=== PATIENT | female | born 1965 | race Caucasian/White ===

== ENCOUNTER 2017-11-11 10:34 | Emergency (ER) ==
[2017-11-11 10:47] VITALS: BP 156/93; TEMP 99; BMI 29.2
--- NOTE | 2017-11-11 11:01 | ED.PDOC ---
General ED Provider: Dr. THAI REIS Chief Complaint: Foot Pain/Injury Stated Complaint: Fell yesterday - heard a pop - now painful, unable to bear weight; swollen and bruised. Time Seen by Physician: 10:50 Mode of Arrival: Wheelchair Information Source: Patient Primary Care Provider: SANTANA ARRIAZA Nursing and Triage Documentation Reviewed and Agree: Yes Reviewed sepsis parameters & appropriate labs ordered?: Yes System Inflammatory Response Syndrome: Not Applicable Sepsis Protocol: For patient's 13 years and over: Temp is 96.8 and below OR 101 and greater Pulse >90 BPM Resp >20/minute Acutely Altered Mental Status Are patient's symptoms suggestive of a new infection, such as: -Pneumonia -Skin, Soft Tissue -Endocarditis -UTI -Bone, Joint Infection -Implantable Device -Acute Abdominal Infection -Wound Infection -Meningitis -Blood Stream Catheter Infection -Unknown Review of Systems - Review Of Systems Constitutional: Reports: No symptoms All Other Systems: Reviewed and Negative Past Medical History - Past Medical History Previously Healthy: Yes Endocrine: Reports: Dyslipidemia Cardiovascular: Reports: None Respiratory: Reports: None Hematological: Reports: None Gastrointestinal: Reports: GERD Genitourinary: Reports: None Neuro/Psych: Reports: Anxiety Musculoskeletal: Reports: Arthritis, 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) Cancer: Reports: None Last Menstrual Period: hysterectomy - Surgical History General Surgical History: Reports: Hysterectomy - Family History Family History: Reports: None - Social History Smoking Status: Current every day smoker, Heavy tobacco smoker Hx Substance Use: No Alcohol Screening: None Physical Exam - Physical Exam Appearance: Well-appearing Pain Distress: Moderate Respiratory: Airway patent Cardiovascular: RRR Musculoskeletal: Normal strength, ROM intact Skin: Warm, Dry, Normal color (Except dorsum L foot, ) Neurological: Sensation intact, Motor intact, Alert, Oriented Psychiatric: Affect appropriate, Mood appropriate Interpretation - Radiology Interpretation Radiology Interpretation By: Radiologist Radiology Results: Negative (No apparent FX; spurs, base 3rd met - corellate clinically) Exam Interpreted: Other (3 View L foot) Re-Evaluation - Re-Evaluation Time of Re-Evaluation: 11:30 Status: Unchanged Vital Signs Stable: Yes Appearance: Other (crying in pain) Skin: Warm and Dry Neuro: Alert and Oriented X3 Critical Care Note - Critical Care Note Total Time (mins): 10 Course - Course Orders, Labs, Meds: Orders Category Date Time Status Splint [ED SPLINT APPLICATION] .ONCE EMERGENCY 11/11/17 11:41 Active Hydromorphone HCl [Dilaudid 1 mg/ml Syringe] MEDS 11/11/17 11:22 Discontinued 1 mg IM ONCE STA Ondansetron [Zofran Odt] MEDS 11/11/17 11:24 Discontinued 4 mg PO ONCE STA FOOT, LEFT 3 VIEWS Stat RADS 11/11/17 10:53 Completed Medications Discontinued Medications Generic Name Dose Route Start Last Admin Trade Name Trupti PRN Reason Stop Dose Admin Hydromorphone HCl 1 mg 11/11/17 11:22 11/11/17 11:37 Dilaudid 1 Mg/Ml Syringe IM 11/11/17 11:23 1 mg ONCE STA Administration Ondansetron HCl 4 mg 11/11/17 11:24 11/11/17 11:36 Zofran Odt PO 11/11/17 11:25 4 mg ONCE STA Administration Vital Signs: Temp Pulse Resp BP Pulse Ox 11/11/17 10:35 99.0 F 106 H 22 156/93 H 95 Departure - Departure Time of Disposition: 12:02 Disposition: HOME SELF-CARE Discharge Problem: Strain of left foot Qualifiers: Encounter type: initial encounter Qualified Code(s): S96.912A - Strain of unspecified muscle and tendon at ankle and foot level, left foot, initial encounter Instructions: Foot Sprain (ED) Condition: Good Pt referred to PMD for follow-up: Yes (Call for appointment) IPMP verified?: No (No narcotic prescribed) Additional Instructions: Elevate L leg/foot when able; cold for first 24 hours. Use walker when necessary to be up and about for personal needs. Follow up with orthopedics in 1 week if not better. Allergies/Adverse Reactions: Allergies No Known Allergies Allergy (Unverified 08/29/15 09:56) Home Medications: Ambulatory Orders Gabapentin 300 mg PO QID 08/29/15 Hydrocodone/Acetaminophen [Lortab 10-325 Mg Tablet] 1 each PO QID 08/29/15 Sertraline HCl [Zoloft] 50 mg PO DAILY 08/29/15 Omeprazole 20 mg PO BID 10/20/17 Pravastatin Sodium 40 mg PO DAILY 10/20/17 Cyclobenzaprine HCl [Flexeril] 10 mg PO TID PRN 11/11/17 Disposition Discussed With: Patient
--- NOTE | 2017-11-11 11:20 | DI ---
EXAM: LEFT FOOT, 3 VIEWS HISTORY: Fall, swelling and pain FINDINGS / IMPRESSION: There is slight irregularity at the base of the second and especially third metatarsal bones which ma y represent bony spurring. If there are symptoms at the level of the metatarsal bases, a fracture co uld be considered. Correlate with presentation. Otherwise the bone joint structures of the foot were unremarkable. No ankle joint effusion.
[2017-11-11] MEDS: ZOFRAN ODT PO STA (11:36)
[2017-11-11] MEDS: DILAUDID 1 MG/ML SYRINGE IM STA (11:37)
== END 2017-11-11 12:42 | disposition home or self-care (01) ==
LOC: ED 10:34
DX: S96.912A Strain of unspecified muscle and tendon at ankle and foot level, left foot, initial encounter (principal); W19.XXXA Unspecified fall, initial encounter; Z72.0 Tobacco use
CPT/HCPCS: 96372; 99283